=== PATIENT | male | born 1990 | race Caucasian/White ===

== ENCOUNTER 2020-01-03 18:11 | Emergency (ER) | payer OTHER, SELFPAY ==
[2020-01-03 18:11] VITALS: BP 140/79; PULSE 106; RESP 16; TEMP 38.6; O2SAT 96
--- NOTE | 2020-01-03 18:42 | ED.URI ---
HPI - URI/Sore Throat General Chief Complaint: Upper Respiratory Infection Stated Complaint: flu Source: patient Mode of arrival: ambulatory Limitations: no limitations History of Present Illness MD elicited complaint: fever, cough, sore throat and rhinorrhea Pertinent past history: pneumonia Onset (ago): day(s) (one ) Consistency: progressively worsening Pain scale (0-10): 3 Able to tolerate fluids by mouth: Yes Exacerbating factors: nothing Relieving factors: nothing Associated symptoms: myalgias and headache (mild) Related Data Allergies Allergy/AdvReac Type Severity Reaction Status Date / Time No Known Allergies Allergy Verified 01/03/20 18:30 Review of Systems Constitutional: Constitutional: Reports no additional constitutional complaints Eyes: Comments: no conjunctivitis ENT: Reports system reviewed and no additional complaints, except as documented Cardiovascular: Cardiovascular: Denies chest pain Respiratory: Respiratory: Reports no additional respiratory complaints Gastrointestinal: Gastrointestinal: Denies abdominal pain, Denies diarrhea, Denies nausea and Denies vomiting Musculoskeletal: Musculoskeletal: Reports no additional musculoskeletal complaints Integumentary/Breasts: Skin/Breast: Denies rash [facility] Past Medical History Medical History (Updated 01/04/20 @ 00:01 by Zohra Foster) Sinusitis Family History Family History (Updated 01/03/20 @ 18:47 by Timi Vaughn MD) Father Hypertension Social History Social History (Updated 01/03/20 @ 18:47 by Timi Vaughn MD) Smoking status: Current every day smoker Exam Const: Other: Frequent deep unproductive cough HENMT: Mouth: Yes Normal oral and palatal mucosa present Eyes: Conjunctivae: conjunctivae normal Neck: Neck: no lymphadenopathy Chest: Chest palpation & inspection: normal inspection of the chest Resp: Auscultation: clear to auscultation bilaterally Cardio: Rate: regular rate Rhythm: regular rhythm GI: GI Palp: Yes Soft to palpation Course Course Emergency Course: Symptoms very c/o with Influenza which is widespread in the community. In spite of negative tests, likely Influenza. Explained to patient. Vital Signs Vital signs: Vital Signs Temperature 38.6 C H 01/03/20 18:11 Pulse Rate 106 H 01/03/20 18:11 Respiratory Rate 16 01/03/20 18:11 Blood Pressure 140/79 01/03/20 18:11 Pulse Oximetry 96 01/03/20 18:11 Temperature 38.6 C H 01/03/20 18:11 Pulse Rate 106 H 01/03/20 18:11 Respiratory Rate 20 01/03/20 19:28 Blood Pressure 140/79 01/03/20 18:11 Pulse Oximetry 96 01/03/20 18:11 MDM - URI/Sore Throat Differential Diagnosis Differential diagnosis: Likely upper respiratory infection and other (pneumonia) Lab Data Attestation: I reviewed the patient's lab results. Labs: Lab Results 01/03/20 Range/Units 18:41 Influenza Type A Ag Negative (Negative) Influenza Type B Ag Negative (Negative) Discharge Plan Discharge Clinical Impression: Influenza Patient Disposition: Home, Self-Care Condition: Stable Instructions: Influenza (ED) Prescriptions: New oseltamivir [Tamiflu] 75 mg capsule 75 mg PO Q12H 5 Days Qty: 9 RF: 0 Follow-up/Referrals: UNKNOWN,DOCTOR [Primary Care Provider] - Time of Disposition: 19:18 Discharge Date/Time: 01/03/20 19:29
[2020-01-03 19:05] LABS: Influenza Control Valid (Valid)
[2020-01-03 19:28] VITALS: RESP 20
[2020-01-03] MEDS: OSELTAMIVIR PHOSPHATE 75 MG CAP PO (19:28)
== END 2020-01-03 19:29 | disposition home or self-care (01) ==
PROVIDERS: Emergency Provider Family Medicine
DX: J11.1 Influenza due to unidentified influenza virus with other respiratory manifestations (principal); F17.200 Nicotine dependence, unspecified, uncomplicated
CPT/HCPCS: 87804; 99283; A9270

== ENCOUNTER 2020-11-28 07:52 | Outpatient (CLI) | payer OTHER, SELFPAY ==
--- NOTE | ~2020-11-28 | US_ITS ---
EXAMINATION: US right upper quadrant EXAM DATE: 11/28/2020 08:26 INDICATION: Elevated liver enzymes. TECHNIQUE: Multiple grayscale and Doppler images of the abdomen right upper quadrant were obtained (b y a technologist who performed the scan) and subsequently reviewed. There is no prior study for markos quan. FINDINGS: The pancreatic head and body are normal in appearance. The pancreatic tail is not visualized. There is echogenic liver parenchyma, hepatic steatosis. There are no focal liver lesions identified. Th ere is no evidence of intrahepatic biliary duct dilation. Portal venous flow was seen in the hepatop edal, normal direction and has normal Doppler waveform. No right-sided hydronephrosis. Common bile duct measures 6 mm, which is normal. The gallbladder wall is normal in thickness, with ex pected amount of distention. No sonographic evidence of pericholecystic fluid. There is no cholelit hiases. Technologist performing exam reports patient did not demonstrate sonographic Aquino's sign. Please note that this sign is less reliable in patients who have received pain medication. IMPRESSION: 1. Hepatic steatosis. Reviewed, dictated and finalized at location A. RVISOR DUMPING IMPRESSION: 1. Hepatic steatosis.
== END 2020-11-28 07:53 | disposition home or self-care (01) ==
LOC: CHSIMG 07:54
PROVIDERS: PCP Family Medicine; Visit Provider Family Medicine
DX: R74.8 Abnormal levels of other serum enzymes (principal)
CPT/HCPCS: 76705

== ENCOUNTER 2023-03-04 16:37 | Emergency (ER) | payer OTHER, SELFPAY ==
--- NOTE | ~2023-03-04 | CT_ITS ---
EXAMINATION: CT brain wo con DATE: 03/04/2023 17:41 INDICATION: Syncope. Head injury. TECHNIQUE: Computed tomography (CT) of the head was performed without intravenous contrast. The mA wa s adjusted according to patient size. Iterative reconstruction technique was employed. The dose-lengt h product was 605.33 mGy-cm. COMPARISON: None FINDINGS: There is no intracranial hemorrhage, acute infarction, or abnormal intracranial mass lesion . The ventricles are normal in size. There is mucosal thickening in the paranasal sinuses. The orbits are normal. The mastoid air cells are normal. IMPRESSION: 1. Normal brain. Reviewed, dictated and finalized at location E. IMPRESSION: 1. Normal brain.
[2023-03-04 16:40] VITALS: BP 136/87; PULSE 88; PULSE 91; RESP 20; TEMP 37; O2SAT 95
--- NOTE | 2023-03-04 17:14 | ECG_ITS ---
Measurements Intervals [place] Rate: 83 P: 54 ND: 140 QRS: 43 QRSD: 105 T: 57 QT: 362 QTc: 427 Interpretive Statements SINUS RHYTHM DELAYED PRECORDIAL R/S TRANSITION BASELINE ARTIFACT- I, II, III, AVR, AVL, V1-V2 BORDERLINE ECG NO PREVIOUS ECG AVAILABLE FOR COMPARISON Electronically Signed On 03-08-2023 6:47:07 CDT by Jamil Fagan D.O.
[2023-03-04] MEDS: SODIUM CHLORIDE 0.9% IV 1,000 ML 999 ML IV CONT (17:26)
[2023-03-04 17:34] LABS: Basophils Absolute Auto 0.04 K/mm3 (0.00-0.10); Basophils Percent Auto 0.7 % (0.0-1.0); Eosinophils Absolute Auto 0.13 K/mm3 (0.02-0.50); Eosinophils Percent Auto 2.3 % (1.0-6.0); Hematocrit 43.8 % (40.0-54.0); Hemoglobin 15.2 g/dL (14.0-18.0); Immature Granulocyte Absolute 0.03 K/mm3 (0.00-0.00); Immature Granulocyte Percent A 0.5 % (0.0-0.0); Lymphocytes Absolute Auto 1.64 K/mm3 (1.10-4.50); Lymphocytes Percent Auto 28.8 % (18.0-42.0); Mean Corpuscular HGB Conc 34.7 g/dL (32.0-36.0); Mean Corpuscular Hemoglobin 31.8 pg (27.0-31.0); Mean Corpuscular Volume 91.6 fL (78.0-102.0); Monocytes Absolute Auto 0.59 K/mm3 (0.10-0.90); Monocytes Percent Auto 10.4 % (2.0-11.0); Neutrophils Absolute Auto 3.3 K/mm3 (1.7-7.2); Neutrophils Percent Auto 57.3 % (50.0-70.0); Platelet Count Result 153 K/mm3 (150-420); Red Blood Count 4.78 M/mm3 (4.70-6.10); Red Cell Distribution Width 12.1 % (11.6-14.4); White Blood Count 5.7 K/mm3 (4.8-10.8)
[2023-03-04 17:50] LABS: Alanine Aminotransferase 107 U/L (16-63); Albumin Level 3.8 g/dL (3.4-5.0); Alkaline Phosphatase 83 U/L (46-116); Anion Gap 6 mmol/L (8-16); Aspartate Amino Transferase 33 U/L (15-37); Bilirubin,Total 0.3 mg/dL (0.00-1.00); Blood Urea Nitrogen 18 mg/dL (7-18); Calcium 8.8 mg/dL (8.5-10.1); Carbon Dioxide 30 mmol/L (21-32); Chloride 104 mmol/L (98-108); Creatine Kinase 400 U/L (39-308); Estimated CRCL calculation 106 ml/min; Estimated Glomerular Filt Rate > 60; Glucose 113 mg/dL (70-99); Osmolality Calculated 292 mOsm/kg (285-295); Potassium 4.2 mmol/L (3.5-5.1); Sodium 140 mmol/L (136-145); Total Protein 6.7 g/dL (6.4-8.2)
--- NOTE | 2023-03-04 18:02 | ED.SYNCOPE ---
HPI - Syncope General Chief Complaint: Syncope Stated Complaint: syncope /jerking movement Time Seen by Provider: 03/04/23 16:44 Source: patient and family Mode of arrival: ambulatory Limitations: no limitations History of Present Illness HPI narrative: this is a 32-year-old male with no significant past medical history presents with an episode of syncope witnessed by his significant other while he was holding the baby he leaned over felt faint and apparently passed out and had a brief episode of shaking he did hit his head with currently no headache no abrasions no lacerations no blurry vision no nausea vomiting with no aura no history of seizures patient does work outdoors and has been according to himself not drinking enough water and felt dehydrated. complaint: loss of consciousness -: second(s) Description of event: focal shaking Prodromal symptoms: none Witnessed: Yes - by Bystander Related Data Home Medications Medication Instructions Recorded Confirmed No Home Medications 03/04/23 03/04/23 Allergies Allergy/AdvReac Type Severity Reaction Status Date / Time No Known Allergies Allergy Verified 01/03/20 18:30 Review of Systems Review of Systems: All systems reviewed & are unremarkable except as noted in HPI and below PMFSH Past Medical History Medical History Sinusitis Family History Family History Father Hypertension Social History Social History Smoking status: Current every day smoker Exam Const: General: healthy appearing Nutritional Appearance: well nourished Orientation/consciousness: patient oriented x3 Limitations: no limitations HENMT: Head: normal to inspection Eyes: Conjunctivae: conjunctivae normal Pupils: Equal, round and reactive pupils present EOM: EOMs intact bilaterally Chest: Chest palpation & inspection: normal inspection of the chest Resp: Effort & Inspection: normal respiratory effort Auscultation: clear to auscultation bilaterally Cardio: Rate: regular rate Rhythm: regular rhythm GI: Auscultation: normal bowel sounds : General: Yes bladder normal to palpation Male General Exam: Yes normal external exam Urinary Catheter: Urinary Catheter: patent and draining Back/Spine/Pelvis: Back: no CVA tenderness Skin: General skin exam: normal color Rashes: no rashes Wounds: no wounds Neuro: General: patient oriented x3 Cranial nerves: Yes Nystagmus not present Extrem: General: normal to inspection Psych: Mental Status: mental status grossly normal Course Course Emergency Course: Patient had CT scan performed and reviewed which showed no acute findings his EKG showed normal sinus rhythm patient did have mildly elevated CK level and received IV hydration and blood work performed was within normal limits except for the CK, blood pressure was stable. Vital Signs Vital signs: Vital Signs Temperature 37.0 C 03/04/23 16:40 Pulse Rate 91 03/04/23 16:40 Respiratory Rate 20 03/04/23 16:40 Blood Pressure 136/87 03/04/23 16:40 Pulse Oximetry 95 03/04/23 16:40 Oxygen Delivery Room Air 03/04/23 16:40 Temperature 37.0 C 03/04/23 16:40 Pulse Rate 88 03/04/23 16:40 Respiratory Rate 20 03/04/23 16:40 Blood Pressure 136/87 03/04/23 16:40 Pulse Oximetry 95 03/04/23 16:40 Oxygen Delivery Room Air 03/04/23 16:40 MDM - Syncope Lab Data 03/04/23 17:28 03/04/23 17:28 Labs: Lab Results 03/04/23 Range/Units 17:28 WBC 5.7 (4.8-10.8) K/mm3 RBC 4.78 (4.70-6.10) M/mm3 Hgb 15.2 (14.0-18.0) g/dL Hct 43.8 (40.0-54.0) % MCV 91.6 (78.0-102.0) fL MCH 31.8 H (27.0-31.0) pg MCHC 34.7 (32.0-36.0) g/dL RDW 12.1 (11.6-14.4) % Plt Count 153 (150-420) K/mm3 MPV 10.0 (8.7-11.0) fl Immature Gran
[2023-03-04 18:04] VITALS: BP 117/78; PULSE 81; RESP 20; TEMP 37.2; O2SAT 97
== END 2023-03-04 18:18 | disposition home or self-care (01) ==
PROVIDERS: Emergency Provider Emergency Medicine; PCP Family Medicine
DX: R55 Syncope and collapse (principal); F17.200 Nicotine dependence, unspecified, uncomplicated
CPT/HCPCS: 36415; 70450; 80053; 82550; 85025; 93005; 96360; 99284; J7030

== ENCOUNTER 2024-03-18 17:51 | Emergency (ER) | payer OTHER, SELFPAY ==
[2024-03-18 17:57] VITALS: BP 147/94; PULSE 93; RESP 19; TEMP 36.6; O2SAT 96
--- NOTE | 2024-03-18 18:00 | PC.NURSE ---
[facility] bite incident report faxed.
--- NOTE | 2024-03-18 18:16 | ED.ANIMALBIT ---
HPI - Animal Bite General Chief Complaint: Animal Bite Stated Complaint: dog bite Time Seen by Provider: 03/18/24 17:59 Source: patient Mode of arrival: ambulatory Limitations: no limitations History of Present Illness HPI narrative: patient is a 33-year-old male with a significant past medical history that presents today for a AML bite. Patient was bit by his own dog. His dog is up-to-date with all his shots. The dog bit his left forearm he was trying to reach out to get something and the dog bit him. There are just multiple small lacerations to his left forearm. They are not currently bleeding. He is not up-to-date with tetanus shot. complaint: animal bite Onset (ago): hour(s) Animal: dog Description of animal: household pet Mechanism: bite Location: other ( left forearm) Pain description: sharp Severity scale (1-10): 2 Context: playing with animal Associated symptoms: none Treatments prior to arrival: irrigation Related Data Patient tetanus UTD: No Home Medications Medication Instructions Recorded Confirmed No Home Medications 03/04/23 03/18/24 Allergies Allergy/AdvReac Type Severity Reaction Status Date / Time No Known Allergies Allergy Verified 03/18/24 18:11 Review of Systems Review of Systems: All systems reviewed & are unremarkable except as noted in HPI and below Constitutional: Constitutional: Reports as per HPI Eyes: Eyes: Reports no additional eye complaints ENT: Reports system reviewed and no additional complaints, except as documented Cardiovascular: Cardiovascular: Reports no additional cardiovascular complaints Respiratory: Respiratory: Reports no additional respiratory complaints Gastrointestinal: Gastrointestinal: Reports no additional gastrointestinal complaints Genitourinary: Genitourinary: Reports no additional male genitourinary complaints Musculoskeletal: Musculoskeletal: Reports no additional musculoskeletal complaints Integumentary/Breasts: Skin/Breast: Reports system reviewed and no additional complaints, except as docu Neurologic: Reports system reviewed and no additional complaints, except as documented Psychiatric: Psychiatric: Reports no additional psychiatric complaints Endocrine: Endocrine: Reports no additional endocrine complaints Hematologic/Lymphatic: Hematologic/Lymphatic: Reports no additional hematologic/lymphatic complaints Allergic/Immunologic: Allergic/Immunologic: Reports no additional allergic/immunologic complaints [facility] Past Medical History Medical History Sinusitis Family History Family History Father Hypertension Social History Social History Smoking status: Current every day smoker Exam Const: General: healthy appearing Nutritional Appearance: well nourished Orientation/consciousness: patient oriented x3 Limitations: no limitations HENMT: Head: normal to inspection Ears: external ears normal Face/Nose/Sinus: Normal external nose present Face and sinus: normal facial exam Mouth: Yes Normal oral and palatal mucosa present Eyes: Conjunctivae: conjunctivae normal Pupils: Equal, round and reactive pupils present EOM: EOMs intact bilaterally Neck: Neck: normal visual inspection Chest: Chest palpation & inspection: normal inspection of the chest Resp: Effort & Inspection: normal respiratory effort Auscultation: clear to auscultation bilaterally Cardio: Rate: regular rate Rhythm: regular rhythm Heart sounds: Murmur heart sound present GI: GI Palp: Yes Soft to palpation Back/Spine/Pelvis: Back: no CVA tenderness Skin: Wounds: wounds noted ( multiple lacerations to left forearm) Neuro: General: patient oriented x3 Cranial nerves: Yes Nystagmus not present Speech: normal speech Extrem: General: normal to inspection Psych: Mental Status: mental sta
[2024-03-18] MEDS: AMOXICILLIN/CLAVULANATE K 875-125 MG TAB 1 TABLET PO (18:26)
[2024-03-18] MEDS: TETANUS,DIPHTHERIA,AC PERTUSSIS ADULT 0.5 ML (ADACEL) IM (18:27)
[2024-03-18 18:46] VITALS: BP 147/94; PULSE 93; RESP 19; TEMP 36.6; O2SAT 96
== END 2024-03-18 18:46 | disposition home or self-care (01) ==
PROVIDERS: Emergency Provider Family Medicine; PCP Family Medicine
DX: S51.852A Open bite of left forearm, initial encounter (principal); W54.0XXA Bitten by dog, initial encounter; Z23 Encounter for immunization; F17.200 Nicotine dependence, unspecified, uncomplicated
CPT/HCPCS: 90715; 96372; 99283; A9270